=== PATIENT | male | born 1970 | race Caucasian/White ===

== ENCOUNTER 2023-11-18 14:30 | Inpatient (IN) | payer OTHER ==
[2023-11-18 17:35] VITALS: BMI 19.9
[2023-11-18] MEDS ORDERED: MAGNESIUM HYDROX 2400MG/30ML ORAL SUSPENSION 30 ML CUP PO PRN (18:10)
[2023-11-18] MEDS ORDERED: guaiFENesin 600 MG TABLET.ER (FP) PO PRN (18:10)
[2023-11-18] MEDS ORDERED: MAG HYDROX/AL HYDROX/SIMETH 30 ML UNIT-DOSE CUP PO PRN (18:10)
[2023-11-18] MEDS ORDERED: BENZONATATE 200 MG CAPSULE PO PRN (18:10)
[2023-11-18] MEDS ORDERED: LOPERAMIDE HCL 2 MG CAPSULE PO PRN (18:10)
[2023-11-18] MEDS ORDERED: POLYETHYLENE GLYCOL (HEALTHYLAX) 3350 17 GM PACKET PO PRN (18:10)
[2023-11-18] MEDS ORDERED: BENZOCAINE/MENTHOL (CHLORASEPTIC ) LOZENGE MM PRN (18:10)
[2023-11-18] MEDS ORDERED: P-EPHED 60MG/TRIPROLIDI 2.5MG TABLET PO PRN (18:10)
[2023-11-18] MEDS ORDERED: ACETAMINOPHEN 325 MG TABLET (FP) PO PRN (18:10)
[2023-11-18] MEDS ORDERED: IBUPROFEN 600 MG TABLET (FP) PO PRN (18:10)
[2023-11-18] MEDS ORDERED: BISMUTH SUBSALICYLATE 524 MG/30 ML PO PRN (18:10)
[2023-11-18] MEDS: THIAMINE 100 MG TABLET PO SCH (22:28)
[2023-11-18] MEDS: hydrOXYzine PAMOATE 25 MG CAPSULE (FP) PO PRN (22:28)
[2023-11-18] MEDS: MELATONIN 5 MG TABLETS PO SCH (22:28)
[2023-11-18] MEDS: METHOCARBAMOL 500 MG TABLET PO PRN (22:28)
[2023-11-19] MEDS: ONDANSETRON *ODT* 4 MG TABLET SL PRN (00:53)
[2023-11-19] MEDS: DICYCLOMINE HCL 10 MG CAPSULE PO PRN (00:53)
[2023-11-19] MEDS: TRIMETHOBENZAMIDE HCL 200MG/2ML INJ IM ONE (02:52)
[2023-11-19] MEDS: cloNIDine HCL 0.1 MG TABLET PO ONE (02:52)
[2023-11-19] MEDS: chlordiazePOXIDE HCL 25 MG CAPSULE PO PRN (02:56)
[2023-11-19] MEDS: chlordiazePOXIDE HCL 25 MG CAPSULE PO SCH (05:19)
[2023-11-19] MEDS: PRENATAL VITAMINS W/ FOLIC ACID TABLET (FP) PO SCH (10:08)
[2023-11-19] MEDS: amLODIPine BESYLATE 5 MG TABLET (FP) PO SCH (10:47)
[2023-11-19 11:16] LABS: HEMATOCRIT 37.7 % (35.4-49); HEMOGLOBIN 12.2 GM/dL (11.7-16.9); MCH 30.4 pg (25.7-33.7); MCHC 32.3 g/dl (32.0-35.9); MEAN CELL VOLUME 94.3 fl (80-96); MEAN PLT VOLUME 10.3 fl (7.5-11.1); PLATELET COUNT 127 10^3/uL (134-434); WHITE BLOOD COUNT 4.3 K/mm3 (4.0-10.0)
[2023-11-19 12:08] LABS: POTASSIUM 3.6 mmol/L (3.5-5.1)
[2023-11-19 12:15] LABS: ALBUMIN 3.6 g/dl (3.4-5.0); BLOOD UREA NITROGEN 6.4 mg/dL (7-18); CALCIUM 9.5 mg/dL (8.5-10.1)
[2023-11-19 12:18] LABS: CREATININE 0.8 mg/dL (0.55-1.3); TOT PROT 6.6 g/dl (6.4-8.2)
[2023-11-19] MEDS ORDERED: LORazepam 1 MG TABLET PO PRN (15:32)
[2023-11-19] MEDS: LORazepam 2 MG TABLET PO SCH (17:08)
[2023-11-19] MEDS: FAMOTIDINE 20 MG TABLET PO SCH (22:12)
[2023-11-20] MEDS ORDERED: chlordiazePOXIDE HCL 25 MG CAPSULE PO SCH (05:00)
[2023-11-21] MEDS ORDERED: LORazepam 0.5 MG TABLET PO PRN
[2023-11-21] MEDS ORDERED: chlordiazePOXIDE HCL 10 MG CAPSULE PO PRN
[2023-11-21] MEDS ORDERED: chlordiazePOXIDE HCL 10 MG CAPSULE PO SCH (05:00)
[2023-11-21] MEDS: LORazepam 1 MG TABLET PO SCH (05:26)
[2023-11-21 11:51] LABS: POTASSIUM 3.4 mmol/L (3.5-5.1)
[2023-11-21 12:06] LABS: ALBUMIN 3.8 g/dl (3.4-5.0); BLOOD UREA NITROGEN 8.9 mg/dL (7-18)
[2023-11-21 12:07] LABS: CALCIUM 9.5 mg/dL (8.5-10.1)
[2023-11-21 12:10] LABS: CREATININE 0.8 mg/dL (0.55-1.3)
[2023-11-21 12:12] LABS: TOT PROT 7.2 g/dl (6.4-8.2)
[2023-11-22] MEDS ORDERED: chlordiazePOXIDE HCL 10 MG CAPSULE PO SCH (05:00)
[2023-11-22] MEDS: LORazepam 0.5 MG TABLET PO SCH (05:30)
[2023-11-23] MEDS: IBUPROFEN 400 MG TABLET (FP) PO PRN (02:45)
[2023-11-23] MEDS ORDERED: chlordiazePOXIDE HCL 10 MG CAPSULE PO ONE (05:00)
[2023-11-23 09:49] VITALS: BP 147/86; PULSE 69; RESP 18; TEMP 97.5
== END 2023-11-23 09:50 | disposition home or self-care (01) | DRG 775 ==
LOC: YASAS 14:30 → Y6N 19:44
PROVIDERS: ADMIT Allergy & Immunology; ATTEND Surgery
PROC: HZ2ZZZZ Detoxification Services for Substance Abuse Treatment (ICD-10-PCS; principal; 2023-11-18)
DX: F10.230 Alcohol dependence with withdrawal, uncomplicated (principal); F12.20 Cannabis dependence, uncomplicated; I10 Essential (primary) hypertension; K21.9 Gastro-esophageal reflux disease without esophagitis; R74.01 Elevation of levels of liver transaminase levels; R73.9 Hyperglycemia, unspecified; Z87.891 Personal history of nicotine dependence; Z28.310 Unvaccinated for COVID-19; Z28.9 Immunization not carried out for unspecified reason
CPT/HCPCS: 36415; 80053; 83036; 85027; 86780; 93005; 93010; Q0162